=== PATIENT | male | born 1985 | race Asian ===

== ENCOUNTER 2016-07-06 13:27 | Day surgery (SDC) | payer BC ==
[~2016-07-06] VITALS: Ht 175.3 cm; Wt 63.9 kg
[2016-07-06 14:33] VITALS: Ht 175.3 cm; Wt 63.9 kg
[2016-07-06] MEDS ORDERED: FER325 PO (14:38)
[2016-07-06 14:52] VITALS: BP 114/65; PULSE 80; RESP 16
[2016-07-06] MEDS ORDERED: FENTAnyl 50 MCG/ML VIAL ONE (16:31)
[2016-07-06] MEDS ORDERED: MIDAZOLAM 1 MG/ML 2 ML INJ ONE ×3 (16:31→16:32)
[2016-07-06 16:50] VITALS: BP 109/62; PULSE 79; RESP 25
--- NOTE | 2016-07-06 22:53 | GILP ---
DATE OF PROCEDURE: NAME OF PROCEDURES: 1. Esophagogastroduodenoscopy and biopsy. 2. Colonoscopy. SURGEON: Trinidad Lira MD PREOPERATIVE DIAGNOSIS: Iron deficiency anemia. POSTOPERATIVE DIAGNOSES: 1. Small hiatal hernia. 2. Gastroesophageal reflux disease. 3. Gastritis. 4. Gastric mucosal biopsies were taken for Helicobacter pylori test. 5. Small bowel biopsies were taken to rule out celiac disease. 6. Colonoscopy all the way to the cecum. 7. No bleeding lesion was identified in the colon. 8. The scope was advanced into the terminal ileum. 9. The distal terminal ileum looks normal. INDICATION FOR THE PROCEDURE: Mr. Jc Dubon is a 30-year-old male patient who had iron deficien cy anemia. The patient was scheduled for endoscopy and colonoscopy for further evaluation. The procedures and possible complications are well explained to the patient. He understood and cons ented to the procedure. DESCRIPTION OF PROCEDURE: Under the influence of fentanyl and Versed, the gastroscope was carefully introduced into the esophagus and, under direct vision, it was advanced to the stomach and through the pylorus into the duodenal bulb and descending duodenum. FINDINGS: ESOPHAGUS: The patient had a small hiatal hernia and gastroesophageal reflux disease. STOMACH: He had gastritis. Gastric mucosal biopsies were taken for H. pylori test. DUODENUM: Normal. Small bowel biopsies were taken to rule out celiac disease. The colonoscope was carefully introduced in the rectum and, under direct vision, it was advanced all the way to the cecum and through the ileocecal valve into the distal terminal ileum. FINDINGS: The mucosa was normal. No bleeding lesion was identified. The patient was noted to have small internal hemorrhoids. He tolerated the procedures very well and there was no complication from the procedures. At the end of the procedures, he was awake with stable vital signs and he was discharged home to the care of [facility]. IMPRESSION: 1. Small hiatal hernia. 2. Gastroesophageal reflux disease. 3. Gastritis. 4. Gastric mucosal biopsies were taken for Helicobacter pylori test. 5. Small bowel biopsies were taken to rule out celiac disease. 6. Colonoscopy all the way to the cecum. 7. No bleeding lesion was identified in the colon. 8. The scope was advanced into the terminal ileum. 9. The distal terminal ileum looks normal. PLAN: 1. Await histopathology reports. 2. If the small bowel biopsies negative for celiac disease, the patient will need capsule endoscopy for the small bowel to look for bleeding lesion in the small bowel. Dictated By: TRINIDAD PRESSLEY/DIRK Conf#: [id number] DID#: [id number] CC: TRINIDAD LIRA MD;*EndCC*
--- NOTE | 2016-07-07 08:55 | CONS ---
DATE OF ADMISSION: 07/06/2016 DATE OF CONSULTATION: TYPE OF CONSULTATION: Preoperative gastroenterology. Dear Dr. Thorpe: I thank you very much for this kind referral. HISTORY OF PRESENT ILLNESS: Mr. Jc Dubon is a 31-year-old male patient who has been referred t o me for further evaluation of severe iron deficiency anemia. The patient denies any history of gas trointestinal tract bleeding. There is no history of peptic ulcer disease or colon neoplasm. He do es not have any upper abdominal pain, nausea, or vomiting. He is not taking any nonsteroidal anti-i nflammatory agents. His appetite has been good and he is not losing any weight. The patient denies any change in the bowel habit. There is no past history of inflammatory bowel disease or colon fabiana plasm. There is no history of gallstones. He does not have any fever, chills, or jaundice. There is no history of liver disease. He is not a hypertensive or diabetic. He does not have any heart d isease or lung problem. There is no history of kidney disease. He is status post appendectomy. SOCIAL HISTORY: He is a nonsmoker. He does not abuse alcohol. FAMILY HISTORY: Negative for gastrointestinal tract neoplasm. ALLERGIES: THERE IS NO HISTORY OF SIGNIFICANT DRUG ALLERGY. MEDICATIONS: Ferrous sulfate. PHYSICAL EXAMINATION: VITAL SIGNS: He is 5 feet 10 inches tall and he weighs 142 pounds. HEART: Examination of the heart reveals normal first and second heart sounds. LUNGS: Clear. ABDOMEN: Soft without any distention. Liver and spleen are not palpable. There are no masses. Th ere is no focal tenderness. Normal bowel sounds are heard. CENTRAL NERVOUS SYSTEM: Does not reveal any focal neurological deficit. IMPRESSION: 1. Iron deficiency anemia. 2. Rule out gastrointestinal tract blood loss. 3. Rule out celiac disease. 4. Status post appendectomy. PLAN: 1. Endoscopy and colonoscopy for further evaluation. 2. During upper endoscopy, small bowel biopsies will be taken to rule out celiac disease. The procedures and possible complications are well explained to the patient. He understands and con sents to the procedure. I thank you once again. With warmest personal regards, Dictated By: TRINIDAD PRESSLEY/DIRK Conf#: [id number] DID#: [id number] CC: TRINIDAD LIRA MD;*End*
== END 2016-07-06 16:33 | disposition home or self-care (01) ==
LOC: GIL 13:27
PROVIDERS: ATTEND Internal Medicine Gastroenterology
DX: K44.9 Diaphragmatic hernia without obstruction or gangrene (principal); K21.9 Gastro-esophageal reflux disease without esophagitis; K29.70 Gastritis, unspecified, without bleeding; D50.9 Iron deficiency anemia, unspecified
CPT/HCPCS: 43239; 45378; 87081; 88305; J2250; J3010; Z7610